=== PATIENT | female | born 1990 | race Caucasian/White ===

== ENCOUNTER → 2018-01-21 15:02 | Outpatient (CLI) | payer BC, SELFPAY ==
--- NOTE | 2018-01-21 15:22 | US_ITS ---
US transvaginal HISTORY: ITS.REASON: LEFT LOWER QUAD PAIN ORDERING PHYSICIAN: Misael Freire MD PATIENT AGE: 27 years Comparison: None Last menstrual period 01/04/2018 FINDINGS: The uterus is 8.8 x 4.1 x 5 cm with a combined endometrial thickness of 9 mm. The left ovary is 5.3 x 3.3 cm. There is a 3 cm cyst within the left ovary with some internal echoes and may represent a hemorrhagic cyst. Small follicles are also present. The right ovary is 3 x 2 cm containing multiple small follicles. There is bilateral ovarian blood flow. There is trace cul-de-sac fluid IMPRESSION: 1. 3 cm left complex ovarian cyst which may represent a hemorrhagic cyst 2. Trace cul-de-sac fluid
== END ==
PROVIDERS: PCP Nurse Practitioner Family; Visit Provider Family Medicine
DX: R10.32 Left lower quadrant pain (principal)
CPT/HCPCS: 76830

== ENCOUNTER → 2018-04-29 09:50 | Outpatient (CLI) | payer BC, SELFPAY ==
[2018-04-29 09:54] LABS: Adenovirus F 40/41, stool Not Detected (NotDetected); Astrovirus Not Detected (NotDetected); Campylobacter Not Detected (NotDetected); Clostridium Difficile A/B, PCR Not Detected (NotDetected); Cryptosporidium Not Detected (NotDetected); Cyclospora Cayetanesis Not Detected (NotDetected); Entamoeba histolytica Not Detected (NotDetected); Enteroaggregative E coli Not Detected (NotDetected); Enteropathogenic E coli Not Detected (NotDetected); Enterotoxigenic E coli Not Detected (NotDetected); Giardia lamblia Not Detected (NotDetected); Norovirus Not Detected (NotDetected); Plesimonas Shigalloides, PCR Not Detected (NotDetected); Rotavirus A Not Detected (NotDetected); Salmonella, PCR Not Detected (NotDetected); Sapovirus Not Detected (NotDetected); Shiga-like toxin E coli Not Detected (NotDetected); Shigella Enterovasive E coli Not Detected (NotDetected); Vibrio Cholerae Not Detected (NotDetected); Vibrio, PCR Not Detected (NotDetected); Yersinia Entercolitica, PCR Not Detected (NotDetected)
== END ==
PROVIDERS: Visit Provider Nurse Practitioner Family
DX: R19.7 Diarrhea, unspecified (principal)
CPT/HCPCS: 87507

== ENCOUNTER → 2019-10-20 17:33 | Outpatient (CLI) | payer OTHER, SELFPAY ==
--- NOTE | 2019-10-20 17:44 | XR_ITS ---
PROCEDURE: XR FOOT RT MIN 3V CLINICAL INDICATION: MASS OF RIGHT FOOT COMPARISON: No exams were available for comparison FINDINGS: No fracture or dislocation. No lytic or blastic change. There is normal mineralization. The joint spaces are well-preserved. No significant degenerative/arthritic changes. No erosive changes evident. Other findings:There is slight increased soft tissue density between the proximal phalanges of the 4th and 5th toes where there is a reported soft tissue mass. No soft tissue calcification or bony erosive change evident. IMPRESSION: Increased soft tissue density at the base of the proximal phalanx of the 4th and 5th toes otherwise negative. No bony abnormality apparent Dictated by: Rafal Edmond MD 10/20/2019 19:14 Rafal Edmond MD in [place] 10/20/2019 19:14
== END ==
PROVIDERS: PCP Nurse Practitioner Family; Visit Provider Nurse Practitioner Family
DX: R22.41 Localized swelling, mass and lump, right lower limb (principal)
CPT/HCPCS: 73630

== ENCOUNTER → 2019-11-02 11:45 | Outpatient (CLI) | payer OTHER, SELFPAY ==
[2019-11-02 12:00] LABS: Basophils # 0.1 K/mm3 (0-0.2); Basophils % 1.1 % (0.1-2.0); Eosinophils # 0.2 K/mm3 (0.0-0.4); Eosinophils % 2.7 % (0.1-12.0); Hematocrit 42.2 % (37.0-47.0); Hemoglobin 14.4 g/dL (12.2-16.2); Lymphocytes # 1.7 K/mm3 (0.7-4.5); Lymphocytes % 21.5 % (10-50); Mean Corpuscular HGB Conc 34.1 g/dL (31.8-35.4); Mean Corpuscular Hemoglobin 30.7 pg (27.0-31.2); Mean Platelet Volume 10.9 fl (7.4-10.4); Monocytes # 0.4 K/mm3 (0.1-1.0); Monocytes % 5.1 % (1.7-9.3); Neutrophils # 5.4 K/mm3 (1.8-7.8); Neutrophils % 69.6 % (37.0-80.0); Platelet Count 187 K/mm3 (142-424); Red Blood Count 4.68 M/mm3 (4.20-5.40); Red Cell Distribution Width 13.4 % (11.5-17.5); White Blood Count 7.8 K/mm3 (4.8-10.8)
[2019-11-02 12:25] LABS: Alanine Aminotransferase 34 U/L (12-78); Albumin Level 3.9 g/dl (3.5-5.0); Albumin/Globulin Ratio 1.4 (1.1-1.8); Alkaline Phosphatase 80 U/L (38-126); Anion Gap 12.4 mEq/L (5-15); Aspartate Amino Transferase 24 U/L (14-36); Bilirubin,Total 0.5 mg/dl (0.2-1.3); Blood Urea Nitrogen 10 mg/dl (7-17); Calcium 9.3 mg/dl (8.4-10.2); Carbon Dioxide 26 mmol/L (22.0-30.0); Chloride 103 mmol/L (98-107); Estimated Glomerular Filt Rate 98 ml/min (>60); GFR (African American) 118 ML/MIN (>60); Globulin 2.7 g/dL (1.3-3.2); Glucose 106 mg/dl (74-100); Potassium 4.4 mmoL/L (3.5-5.1); Sodium 137 mmol/L (136-145); Total Protein,Serum 6.6 g/dl (6.3-8.2)
[2019-11-02 12:30] LABS: C-Reactive Protein 10.3 mg/L (0-4)
[2019-11-02 12:45] LABS: Erythrocyte Sedimentation Rate 9 mm/hr (0-20)
[2019-11-10 09:15] LABS: Nicotine 13.7
== END ==
PROVIDERS: Visit Provider Podiatrist
DX: Z01.818 Encounter for other preprocedural examination (principal); M79.89 Other specified soft tissue disorders
CPT/HCPCS: 36415; 80053; 80323; 85025; 85651; 86140

== ENCOUNTER → 2019-11-06 18:46 | Outpatient (CLI) | payer OTHER, SELFPAY ==
--- NOTE | 2019-11-06 19:03 | ECG_ITS ---
APPROVED REPORT Exam: Resting ECG HR:72 bpm ECG Measurements Heart Rate 72 AXES WV 152 P 27 QRSd 80 QRS 14 QT 408 T 33 QTc 446 <Conclusion> Normal sinus rhythm with sinus arrhythmia Normal ECG Electronically signed by : Misael Montes, 11/10/2019 06:40:49
--- NOTE | 2019-11-06 19:25 | XR_ITS ---
PROCEDURE: XR CHEST 2V CLINICAL HISTORY: SMOKER, PRE-OP COMPARISON: No exams were available for comparison FINDINGS: The cardiomediastinal silhouette and pulmonary vascularity are within normal limits. The lungs are clear without infiltrates, suspicious nodules, or pleural effusions. No acute bony abnormalities. IMPRESSION: No acute findings. Dictated by: Rafal Edmond MD 11/06/2019 21:50 Rafal Edmond MD in [place] 11/06/2019 21:50
== END ==
PROVIDERS: PCP Family Medicine; Visit Provider Podiatrist
DX: Z01.818 Encounter for other preprocedural examination (principal); M79.89 Other specified soft tissue disorders; M79.671 Pain in right foot
CPT/HCPCS: 71046; 93005

== ENCOUNTER → 2019-11-08 17:04 | Outpatient (CLI) | payer OTHER, SELFPAY ==
--- NOTE | 2019-11-08 17:05 | MR_ITS ---
PROCEDURE: MR FOOT RT WO/W CON CLINICAL INDICATION: pain, soft tissue mass RIGHT FOOT SOFT TISSUE MASS BETWEEN 4TH AND 5TH DIGITS, PAIN AND SWELLING IN FOOT. PT STATES MASS HAS BEEN THERE FOR ABOUT A MONTH. 20ML PROHANCE COMPARISON: CR XR FOOT RT MIN 3V from 10/20/2019 TECHNIQUE: Routine multiplanar multi echo sequences are performed without with gadolinium enhancement. FINDINGS: There is a well-circumscribed solid-appearing soft tissue mass epicentered dorsally at the proximal phalangeal region the 4th and 5th toes. The mass extends between the phalanges measuring 2.9 cm in AP dimension, 2.5 cm longitudinal, and 1.9 cm transverse. There is homogeneous isointensity on the T1 weighted images with heterogeneous increased T2 signal with some central areas of D crease T2 signal within the lesion. The mass extends all the toward the plantar aspect of the foot with a longitudinal component between the toes. This component demonstrates decreased T2 signal and isointense T1 signal. There is some mild peripheral enhancement of the mass. The bulk of the mass is along the dorsal aspect of the foot with a beak like extension between the phalanges. This lesion does not appear to be causing any bony erosion but is splaying the proximal phalanges of the 4th and 5th toes apart. No other significant anomalies are evident. IMPRESSION: Solid-appearing soft tissue mass between the proximal phalanges of the 4th and 5th toes as described above. There is some mild peripheral enhancement. The mass is well-circumscribed. Differential diagnosis would include deep fibromatosis, nerve sheath tumor/neuroma/schwannoma, soft tissue chondroma or low grade sarcoma. No obvious bony involvement. Dictated by: Rafal Edmond MD 11/14/2019 08:43 Rafal Edmond MD in [place] 11/14/2019 08:43
== END ==
PROVIDERS: PCP Family Medicine; Visit Provider Podiatrist
DX: M79.89 Other specified soft tissue disorders (principal); D49.89 Neoplasm of unspecified behavior of other specified sites; D48.1 Neoplasm of uncertain behavior of connective and other soft tissue; M79.671 Pain in right foot; R20.2 Paresthesia of skin
CPT/HCPCS: 73720; A9576

== ENCOUNTER → 2019-11-22 17:34 | Outpatient (CLI) | payer OTHER, SELFPAY ==
[2019-11-22 17:55] LABS: Urine Pregnancy, HCG Qual. Negative (Negative)
[2019-11-22 18:52] LABS: Coronavirus 19 IgG Antibody Negative (Negative); Coronavirus 19 IgM Antibody Negative (Negative)
== END ==
PROVIDERS: Visit Provider Podiatrist
DX: Z01.818 Encounter for other preprocedural examination (principal); L72.0 Epidermal cyst
CPT/HCPCS: 36415; 81025; 86328

== ENCOUNTER 2019-11-24 06:34 | Day surgery (SDC) | payer OTHER, SELFPAY ==
[2019-11-22 11:32] VITALS: BMI 38.2
[2019-11-24] VITALS (19 sets, daily range): BP systolic 111–156; BP diastolic 68–95; PULSE 63–94; RESP 15–20; TEMP 36.1–36.9; O2SAT 96–99
--- NOTE | 2019-11-24 08:30 | XR_ITS ---
PROCEDURE: XR FOOT RT MIN 3V CLINICAL INDICATION: Post op mass COMPARISON: CR XR FOOT RT MIN 3V from 10/20/2019 FINDINGS: No fracture or dislocation. No lytic or blastic change. There is normal mineralization. The joint spaces are well-preserved. No significant degenerative/arthritic changes. No erosive changes evident. Other findings:Postsurgical changes are noted with some soft tissue gas and mild soft tissue swelling at the proximal phalangeal region at the 4th and 5th digits. IMPRESSION: Postsurgical changes, no acute finding Dictated by: Rafal Edmond MD 11/24/2019 15:37 Rafal Edmond MD in [place] 11/24/2019 15:37
--- NOTE | 2019-11-24 09:09 | HMH.OPNOTE ---
Date of procedure: 11/24/19 Pre-op Diagnosis:: 1. Right foot soft tissue mass 2. Neoplasm of uncertain behavior of foot 3. Right foot neuritis 4. Paresthesia and pain of right extremity 5. Right foot pain Post-op Diagnosis:: Same + synovitis Procedure performed:: 1. Right foot excision of soft tissue mass 2. Right foot nerve decompression 3. Right foot synovectomy 4. Right foot application of amniotic tissue graft Surgeon:: Nivia Devries DPM MANAGER IMPLEMENTATION:: Misael Peres Anesthesia: GETA, local (30cc 0.5% marcaine plain) Estimated blood loss (mL): 30 Clinical Note:: Patient is a 29-year-old female who presented to the office with a rapidly growing painful soft tissue mass of the right foot. MRI right foot on 11/08/19. FINDINGS: There is a well-circumscribed solid-appearing soft tissue mass epicentered dorsally at the proximal phalangeal region the 4th and 5th toes. The mass extends between the phalanges measuring 2.9 cm in AP dimension, 2.5 cm longitudinal, and 1.9 cm transverse. There is homogeneous isointensity on the T1 weighted images with heterogeneous increased T2 signal with some central areas of D crease T2 signal within the lesion. The mass extends all the toward the plantar aspect of the foot with a longitudinal component between the toes. This component demonstrates decreased T2 signal and isointense T1 signal. There is some mild peripheral enhancement of the mass. The bulk of the mass is along the dorsal aspect of the foot with a beak like extension between the phalanges. This lesion does not appear to be causing any bony erosion but is splaying the proximal phalanges of the 4th and 5th toes apart. No other significant anomalies are evident. IMPRESSION: Solid-appearing soft tissue mass between the proximal phalanges of the 4th and 5th toes as described above. There is some mild peripheral enhancement. The mass is well-circumscribed. Differential diagnosis would include deep fibromatosis, nerve sheath tumor/neuroma/schwannoma, soft tissue chondroma or low grade sarcoma. No obvious bony involvement. Conservative treatment included ice, elevation, NSAIDs, strapping, taping, modification of shoe gear, modification of activity. Conservative treatment discussed but has been exhausted, and mass has more than doubled in size in last few weeks. We discussed surgery. All risks and benefits were discussed including but not limited to: recurrence of the mass, damage to blood vessels and nerves, bleeding, infection, wound complications, delaying in healing of soft tissue or bone, temporary or permanent nerve injury, nerve symptoms tingling/burning/numbness, need for further surgery, prolonged swelling of the extremity, prolonged pain, RSD/CRPS, DVT, and anesthetic complications. No guarantees were given. All questions fully answered. The patient verbalized understanding and agreed to proceed with surgery. Consent was obtained. Necessary labs and pre-op testing ordered. Patient will need a Rx for pain, Zofran, Motrin. Patient has a short fracture boot and crutches. Medical clearance per PCP: Alisson Billy. Labs, 11/02/19: wbc 7.8, neut 69.6%, neut #5.4, esr 9, crp 10.3, glucose 106. Operative findings:: There is a well-circumscribed solid-appearing soft tissue mass epicentered dorsally at the proximal phalangeal region the 4th and 5th toes. The mass was round dorsally but had a tail that extended down and into the phalanges. Synovitis noted around the mass. The mass had blood vessels connected into it. The mass was firm. Once removed, it was on the back table to be approximately 4 x 3 x 2 cm. It was cut open on the back table and there was creamy white-yellow thick sebaceous cyst-like matter inside, wound culture taken. No serous drainage. No odor. There was no ascending cellulitis or deep signs of infection. No obvious bony involvement. Differential diagnosis would include sebaceous cyst, abscess, deep fibromatosis, nerve sheath tumor/neuroma/schwannoma, soft tissue chondroma o
--- NOTE | 2019-11-24 09:09 | HMH.ANESCL ---
[facility] Anesthesia Checklist - Patient Identification Patient Identification: Arm Band, Verbal (Name & ) - Structural Data Admitted From: Home Planned Operative Procedure/s: excision foot mass Consent for Planned Operative Procedure(s) Verified: Yes Verified Documents: History and Physical - NPO Status Verified Time NPO: 00:00 - Additional verifications Patient : No Anesthesia Reactions: No Hx Blood Transfusions: No Blood Transfusion Reaction: No Cephalosporin Allergy: No Previous Colonoscopy: No - Cardiovascular Assessment Heart Sounds: S1 & S2 Pulse Strength: Baseline Pulse Rhythm: Regular Peripheral Edema: No - Airway Assessment C-Spine Mobility Assessed: Yes TMJ Mobility Assessed: Yes Dentition: Edentulous - Neurological Assessment Level of Consciousness: Awake, Alert, Appropriate Hx Seizures: No Numbness or tingling in extremities: No - Anesthesia Plan Anesthesia Risk discussed: Yes Anesthesia Plan: Verified ASA Class: III Anesthesia Type: General [facility] History I have reviewed the patient's past medical history: Yes Medical History: Reports:: Congestive Heart Failure (r/t pre-eclampsia), Gastroesophageal Reflux Disease(GERD), Hypertension (R/T pre-eclampsia ) Denies:: Cancer, Diabetes Mellitus Type 1, Diabetes Mellitus Type 2, Internal Pacemaker, MRSA, Seizures *Have you ever received a pneumonia vaccine?: No *Have you received a flu vaccine this season?: No Other Medical History: Reports: 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 Denies: Blood Transfusion Reaction Anesthesia experience/problems:: none Laterality Cases: Bilateral: Myringotomy (Ear Tubes) Other Surgeries: No: Pacemaker Amputation: No Fractures: Yes (L ankle) - *Social History Last grade of school completed: High school graduate Smoking Status: Current every day smoker Tobacco Type: cigarettes # Packs/Day (cigarettes): 1 Alcohol Intake: never Alcohol Intake Frequency:: other Substance Use Type: denies use *Occupational Status:: employed Housing: house Household Members: spouse *Travel in the last 8 weeks: Inside the [place] Family Hx:: Diabetes, Cancer, Heart Attack, Stroke, Hypertension, Hyperlipidemia, Asthma
--- NOTE | 2019-11-24 09:12 | P.PN_ITS ---
[facility] Anesthesia Record Part I Intake, IV Amount: 600 Estimated blood loss (mL): 10 Urine output (mL): 0 Blood Products used (#): none Blood Pressure: 127/84 SaO2: 98 Pulse Rate: 82 Respiratory Rate: 20 Temperature: 98.5 F Patient is:: Drowsy, Nasal O2, Stable Stable to PACU at:: 09:07
--- NOTE | 2019-11-24 10:07 | HMH.ANESII ---
[facility] Anesthesia Record Part II Discharge Time: 09:37 Destination: Surgical Day Care (OP Surgery) PACU nurse assessment reviewed?: Yes Patient Condition:: Good Anesthesia Complications:: None Swallowing reflex intact?: Yes Cyanosis?: No Blood Pressure: 119/76 Pulse Rate: 87 Temperature: 98.5 F Mental Status: Alert & Oriented Pain level:: 0 Nausea and/or vomitting:: None Intake, IV Amount: 25
== END 2019-11-24 11:20 | disposition home or self-care (01) ==
LOC: OR 06:35
PROVIDERS: PCP Family Medicine; Visit Provider Podiatrist
PROC: (CPT 28039; principal; 2019-11-24 07:30)
DX: D21.21 Benign neoplasm of connective and other soft tissue of right lower limb, including hip (principal); G57.91 Unspecified mononeuropathy of right lower limb; M79.671 Pain in right foot
CPT/HCPCS: 28039; 64704; C5275; 73630; 87070; 87075; 87205; 96374; C1762; J2405; Q4211

== ENCOUNTER → 2021-11-17 11:49 | Outpatient (CLI) | payer OTHER, SELFPAY ==
--- NOTE | 2021-11-17 12:00 | XR_ITS ---
FINAL REPORT CLINICAL HISTORY: Cyst regrowth @ 4th & 5th MTP joints. COMPARISON: November 24, 2019 FINDINGS: 3 views of the right foot were obtained. There is no acute fracture or dislocation. There is mild hallux fibers deformity. There is widening of the space between the 4th and 5th proximal phalanges. IMPRESSION: Widening of the space between the 4th and 5th proximal phalanges. Mass cannot be excluded. If indicated, MRI could further evaluate. Reviewed, Interpreted and Dictated by Jadiel Rome III, MD Transcribed by Fabian Chavez Authenticated and [facility]
[2021-11-17 12:29] LABS: Basophils # 0.2 K/mm3 (0-0.2); Basophils % 1.6 % (0.1-2.0); Eosinophils # 0.2 K/mm3 (0.0-0.4); Eosinophils % 1.8 % (0.1-12.0); Hematocrit 45.5 % (37.0-47.0); Hemoglobin 14.5 g/dL (12.2-16.2); Lymphocytes # 2.2 K/mm3 (0.7-4.5); Mean Corpuscular Hemoglobin 29.2 pg (27.0-31.2); Mean Corpuscular Volume 91.3 fl (81-99); Mean Platelet Volume 11.2 fl (7.4-10.4); Monocytes # 0.5 K/mm3 (0.1-1.0); Monocytes % 4.6 % (1.7-9.3); Neutrophils # 7.3 K/mm3 (1.8-7.8); Neutrophils % 70.9 % (37.0-80.0); Platelet Count 238 K/mm3 (142-424); Red Blood Count 4.98 M/mm3 (4.20-5.40); Red Cell Distribution Width 14.4 % (11.5-17.5); White Blood Count 10.3 K/mm3 (4.8-10.8)
[2021-11-17 12:58] LABS: Erythrocyte Sedimentation Rate 10 mm/hr (0-20)
[2021-11-17 13:55] LABS: Alanine Aminotransferase 28 U/L (12-78); Albumin/Globulin Ratio 1.5 (1.1-1.8); Alkaline Phosphatase 94 U/L (38-126); Anion Gap 9.5 mEq/L (5-15); Aspartate Amino Transferase 25 U/L (14-36); Blood Urea Nitrogen 8 mg/dl (7-17); Calcium 9.1 mg/dl (8.4-10.2); Carbon Dioxide 26 mmol/L (22.0-30.0); Chloride 106 mmol/L (98-107); Estimated Glomerular Filt Rate 96 ml/min (>60); GFR (African American) 117 ML/MIN (>60); Globulin 2.7 g/dL (1.3-3.2); Glucose 93 mg/dl (74-100); Potassium 4.5 mmoL/L (3.5-5.1); Sodium 137 mmol/L (136-145); Total Protein,Serum 6.7 g/dl (6.3-8.2); Uric Acid 4.3 mg/dl (2.5-6.2)
[2021-11-17 13:58] LABS: Bilirubin,Total < 0.1 mg/dl (0.2-1.3)
[2021-11-17 14:01] LABS: C-Reactive Protein 17.8 mg/L (0-4)
== END ==
PROVIDERS: PCP Family Medicine; Visit Provider Podiatrist
DX: M79.671 Pain in right foot (principal); L72.0 Epidermal cyst
CPT/HCPCS: 36415; 73630; 80053; 84550; 85025; 85651; 86140; 87070; 87077; 87186; 87205

== ENCOUNTER → 2021-11-27 09:39 | Outpatient (CLI) | payer OTHER, SELFPAY ==
--- NOTE | 2021-11-27 09:39 | MR_ITS ---
FINAL REPORT CLINICAL HISTORY: right foot pain between 4th and 5th digit pt stated cyst between 4th and 5th digit x 4 week s recently popped x 2 weeks ago no pain now cyst removed from same spot x 2 years ago 23ml prohance given COMPARISON: 11/08/2019 FINDINGS: Multiplanar MR imaging of the right foot was performed with and without contrast. There is mild abnormal signal at the insertion of the Achilles tendon consistent with a partial insertional tear. There is a small cystic structure along the plantar aspect of the foot between the 4th metatarsal and 5th proximal phalanges measuring 8 mm. Finding is well seen on image 19 of series 6. This small cystic structure does not show evidence of contrast enhancement. The previously noted larger cystic structure along the dorsal aspect of the same interspace is no longer seen. IMPRESSION: Partial insertional tear of the Achilles tendon. Cystic structure along the plantar aspect of the 4th metatarsal and 5th proximal phalanges. Reviewed, Interpreted and Dictated by Braden Escalante MD Transcribed by Queenie Aparicio Authenticated and [facility]
== END ==
PROVIDERS: PCP Family Medicine; Visit Provider Podiatrist
DX: L72.0 Epidermal cyst (principal); M79.89 Other specified soft tissue disorders
CPT/HCPCS: 73720; A9576